=== PATIENT | male | born 1955 | race Caucasian/White ===

== ENCOUNTER 2019-05-26 17:37 | Emergency (ER) | payer OTHER ==
--- NOTE | 2019-05-26 18:18 | EKG REPORT ---
SEVERITY:- NORMAL ECG - SINUS RHYTHM : Confirmed by: Mark Mcginnis MD 26-May-2019 18:17:34
[2019-05-26 18:41] LABS: ALBUMIN 3.5 g/dL (3.5-5.0); ALKALINE PHOSPHATASE 57 U/L (38-126); ANION GAP 8 (5-19); ASPARTATE AMINO TRANSFERASE 21 U/L (17-59); BILIRUBIN,DIRECT 0.3 mg/dL (0.0-0.4); BILIRUBIN,TOTAL 0.5 mg/dL (0.2-1.3); BLOOD UREA NITROGEN 19 mg/dL (7-20); CALCIUM 8.6 mg/dL (8.4-10.2); CARBON DIOXIDE 25 mmol/L (22-30); CHLORIDE 105 mmol/L (98-107); CREATINE KINASE 72 U/L (55-170); GLUCOSE 122 mg/dL (75-110); POTASSIUM 4.5 mmol/L (3.6-5.0); TOTAL PROTEIN 6.2 g/dL (6.3-8.2)
[2019-05-26 18:45] LABS: ABSOLUTE LYMPHOCYTES (AUTO) 1.3 10^3/uL (0.5-4.7); ABSOLUTE MONOCYTES (AUTO) 0.7 10^3/uL (0.1-1.4); ABSOLUTE NEUT (AUTO) 12.9 10^3/uL (1.7-8.2); BASOPHILS % (AUTO) 0.1 % (0-2); HEMATOCRIT 37.7 % (37.9-51.0); HEMOGLOBIN 12.4 g/dL (13.5-17.0); LYMPHOCYTES % (AUTO) 8.7 % (13-45); MEAN CORPUSCULAR HEMOGLOBIN 31.1 pg (27.0-33.4); MEAN CORPUSCULAR VOLUME 94 fl (80-97); MONOCYTES % (AUTO) 4.7 % (3-13); PLATELET COUNT 139 10^3/uL (150-450); RED BLOOD COUNT 4.01 10^6/uL (4.35-5.55); RED CELL DISTRIBUTION WIDTH 14.4 % (11.5-14.0); SEGMENTED NEUTROPHILS % (AUTO) 86.5 % (42-78); TOTAL CELLS COUNTED % (AUTO) 100 %
[2019-05-26 18:53] LABS: CREATINE KINASE MB 1.22 ng/mL (<4.55)
[2019-05-26 18:55] LABS: TROPONIN I < 0.012 ng/mL
[2019-05-26 19:13] LABS: APPEARANCE,URINE CLOUDY; BILIRUBIN,URINE SMALL (NEGATIVE); GLUCOSE, URINE NEGATIVE (NEGATIVE); KETONES,URINE TRACE mg/dL (NEGATIVE); LEUKOCYTE ESTERASE,URINE NEGATIVE (NEGATIVE); NITRITE,URINE NEGATIVE (NEGATIVE); PROTEIN,URINE 100 mg/dL (NEGATIVE); URINE SPECIFIC GRAVITY 1.023
[2019-05-26 19:14] LABS: COLOR,URINE YELLOW
[2019-05-26] MEDS ORDERED: ONDANSETRON HCL INJ/PF 4 MG/2 ML SDV IV ONE (19:56)
[2019-05-26] MEDS ORDERED: HYDROMORPHONE HCL INJ/PF 2 MG/ML AMPULE IV ONE ×2 (19:57→22:09)
--- NOTE | 2019-05-26 20:55 | ER Document Report ---
ED General - General Chief Complaint: Near Syncope Stated Complaint: DIZZINESS Time Seen by Provider: 05/26/19 19:01 Primary Care Provider: CHARLES MCCABE MD [Primary Care Provider] - Follow up as needed Notes: 63-year-old male presents emergency department complaining of 3 near syncopal episodes today starting with one while he was straining to have a bowel movement on the toilet. Patient states that he has a history of chronic constipation and was straining to have a bowel movement on the toilet when he became dizzy and sweaty and off balance and fell off the toilet. States he sustained skin tears to his right arm. Later during the day while he was cleaning he had 2 more near syncopal episodes. Denies any chest pain at the time denies any other injuries from this. Patient admits that today all he has had to drink was 2 cups of coffee and one Dr. Pepper. Otherwise has not had anything to eat or drink and yesterday he did not eat anything but only had limited liquid intake and that included alcohol. Patient's bigger concern is his low back pain that is been going on for the past year. States that it goes from hip to hip does not radiate down his legs or up into his upper back, denies any numbness or tingling and denies any loss of control of his bowels or his bladder. Denies any worsening of the pain since his fall but does state it is now radiating to his abdomen. Patient would like to have this worked up as well. TRAVEL OUTSIDE OF THE [place] IN LAST 30 DAYS: No - Related Data Allergies/Adverse Reactions: No Known Allergies Allergy (Verified 02/23/16 07:38) Past Medical History - General Information source: Patient - Social History Smoking Status: Current Every Day Smoker Frequency of alcohol use: Occasional Drug Abuse: Marijuana Family History: Reviewed & Not Pertinent Patient has suicidal ideation: No Patient has homicidal ideation: No - Past Medical History Cardiac Medical History: Reports: Hx Hypercholesterolemia, Hx Hypertension Denies: Hx Coronary Artery Disease, Hx Heart Attack Pulmonary Medical History: Denies: Hx Asthma, Hx Bronchitis, Hx COPD, Hx Pneumonia Neurological Medical History: Denies: Hx Cerebrovascular Accident, Hx Seizures Endocrine Medical History: Denies: Hx Diabetes Mellitus Type 1, Hx Diabetes Mellitus Type 2 Musculoskeletal Medical History: Denies Hx Arthritis Past Surgical History: Reports: Hx Orthopedic Surgery, Hx Testicular Surgery - vasectomy. Denies: Hx Pacemaker - Immunizations Immunizations up to date: Yes Hx Diphtheria, Pertussis, Tetanus Vaccination: Yes Review of Systems - Review of Systems Constitutional: No symptoms reported EENT: No symptoms reported Cardiovascular: See HPI - Near syncope Respiratory: No symptoms reported Gastrointestinal: See HPI, Abdominal pain, Constipation. denies: Diarrhea, Nausea Genitourinary: No symptoms reported Musculoskeletal: See HPI, Back pain -: Yes All other systems reviewed and negative Physical Exam - Vital signs Vitals: Temp 98.1 F 05/26/19 17:48 Interpretation: Normal - Notes Notes: GENERAL: Alert, interacts well. No acute distress. HEAD: Normocephalic, atraumatic EYES: Pupils equal, round and reactive to light, extraocular movements intact. ENT: Oral mucosa moist, tongue midline. NECK: Full range of motion, supple, trachea midline. LUNGS: Clear to auscultation bilaterally, no wheezes, rales or rhonchi, no respiratory distress. HEART: Regular rate and rhythm, no murmurs, gallops, rubs. ABDOMEN: Soft, right-sided tenderness to palpation right upper and lower quadrant, obese but nondistended, bowel sounds present in all 4 quadrants. EXTREMITIES: Moves all 4 extremities spontaneously, no edema, radial and dorsalis pedis pulses 2/4 bilaterally. No cyanosis. NEUROLOGICAL: Alert and oriented x3, normal speech, no facial droop, biceps and patellar DTRs 2+ bilaterally. 5 out of 5 great toe raising strength bilaterally, sensation intact, no saddle anesthesia. BACK: No midline bony tenderness to palpation on the back, no step-offs or d eformity, no paraspinal muscle spasm. Patient has a small amount of tenderness to palpation across the buttocks bilaterally across the sciatic nerve distribution. PSYCH: Normal mood, normal affect. SKIN: Warm, Dry, normal turgor, 2 superficial skin tears noted to the right forearm proximally. Course - Re-evaluation Re-evalutation: 05/26/19 21:15 CBC shows leukocytosis of 15, anemia with hemoglobin 12, platelets low at 139, creatinine is bumped at 1.49, troponin negative. Urinalysis shows trace ketones and small bilirubin. Patient is being hydrated. Chest x-ray and CT scan are being performed given the abdominal pain and near syncope. EKG is nonischemic. For the low back pain that is been going on for the past year I am having them perform lumbar reconstructions on the CAT scan. I do not see any signs of cauda equina syndrome. There are no red flag symptoms. 05/26/19 21:31 I just examined the images on the CAT scan of this patient and he appears to have a greater than 9 cm abdominal aortic aneurysm with true and false lumen as well as right sided rupture. I have called and asked the radiologist to look at this as soon as possible. This will be communicated to the radiologist by the doctor of radiology. We are performing coags, getting a second large-bore IV and typing and crossing the patient. 05/26/19 22:07 Radiology confirms ruptured AAA with rightward leaking. States that there is plaquing and ulceration but he does not see a dissection. I have also push the films to [facility] and asked for vascular surgeon to take a look. I am calling them back at this time to see if they will accept the patient. 05/26/19 22:12 Dr. Chavez will call me back after the films have been examined. They just got pushed over. Family is aware of my plan to transfer to [facility] and of the diagnosis. They are in agreement with the plan. Patient's blood pressure is currently well controlled. 2 units of PRBCs have been ordered in case the patient becomes hypotensive. There are signs of intravascular volume depletion on the CT scan. We will likely end up giving 1 unit of PRBCs as soon is ready. I have not ordered untyped uncrossed trauma blood. 05/26/19 22:[address] Chavez who has reviewed the films, he agrees to accept the patient to his service. He recommends against giving PRBCs unless the patient becomes hypotensive. They are checking to see if the patient can fly. 05/26/19 22:49 Helicopter is available, they will be here in 15 to 20 minutes. 05/26/19 23:12 Helicopter crew is at bedside, patient continues to be stable, normal blood pressure. Patient is stable for transport. - Vital Signs Vital signs: Temp Pulse Resp BP Pulse Ox 98.1 F 15 115/74 92 05/26/19 17:48 05/26/19 22:31 05/26/19 22:31 05/26/19 22:31 - Laboratory Result Diagrams: 05/26/19 18:14 05/26/19 18:14 Laboratory results interpreted by me: 05/26/19 05/26/19 05/26/19 18:14 18:14 18:50 WBC 15.0 H RBC 4.01 L Hgb 12.4 L Hct 37.7 L RDW 14.4 H Plt Count 139 L Lymph % (Auto) 8.7 L Absolute Neuts (auto) 12.9 H Seg Neutrophils % 86.5 H Creatinine 1.49 H Est GFR ( Amer) 58 L Est GFR (MDRD) Non-Af 48 L Glucose 122 H Total Protein 6.2 L Urine Protein 100 H Urine Ketones TRACE H Urine Bilirubin SMALL H Urine Urobilinogen 2.0 H Crossmatch 05/26/19 21:36 WBC RBC Hgb Hct RDW Plt Count Lymph % (Auto) Absolute Neuts (auto) Seg Neutrophils % Creatinine Est GFR ( Amer) Est GFR (MDRD) Non-Af Glucose Total Protein Urine Protein Urine Ketones Urine Bilirubin Urine Urobilinogen Crossmatch See Detail Critical Care Note - Critical Care Note Total time excluding time spent on procedures (mins): 55 Discharge - Discharge Clinical Impression: Ruptured abdominal aortic aneurysm, Chronic back pain greater than 3 months duration Condition: Critical Disposition: [facility] Referrals: CHARLES MCCABE MD [Primary Care Provider] - Follow up as needed
[2019-05-26] MEDS ORDERED: NORMAL SALINE 1000 ML 1,000 ML IV ONE (21:15)
--- NOTE | 2019-05-26 21:34 | RADIOLOGY REPORT (SQ) ---
EXAM DESCRIPTION: [facility]: XR CHEST 2 VIEWS Views: 2 CLINICAL HISTORY: 63 years Male, near syncope COMPARISON: None. FINDINGS: The lungs are clear. No pneumothorax or significant pleural effusion. No mediastinal shift. Heart size is difficult to assess on this apical lordotic view. Bony structures are unremarkable for age. IMPRESSION: 1. No acute cardiothoracic abnormality.
[2019-05-26 21:49] LABS: INTERNATIONAL RATION (INR) 1.14; PROTHROMBIN TIME 14.7 SEC (11.4-15.4)
[2019-05-26 21:50] LABS: PARTIAL THROMBOPLASTIN TIME 29.2 SEC (23.5-35.8)
--- NOTE | 2019-05-26 21:50 | RADIOLOGY REPORT (SQ) ---
EXAM DESCRIPTION: CT ABDOMEN PELVIS WITH IV CONTRAST COMPLETED DATE/TME: 05/26/2019 19:56 CLINICAL HISTORY: 63 years, Male, Near syncope x3, vomiting, abdominal pain LUMBAR PAIN COMPARISON: None. TECHNIQUE: Contrast enhanced CT of the abdomen/pelvis was performed. Coronal and sagittal reformations were created. Images stored on PACS. All CT scanners at this facility use dose modulation, iterative reconstruction, and/or weight based dosing when appropriate to reduce radiation dose to as low as reasonably achievable (ALARA). [facility]: Dose Right [facility]: CareDose [facility]: Dose Right [facility]: Teradose 4D [facility]: [employer] LIMITATIONS: None. FINDINGS: Limited evaluation of the lower chest reveals bibasilar dependent atelectasis. Calcifications are evident about the coronary vessels. There is a small hiatal hernia. A fluid density lesion is noted about the dome of the left hepatic lobe, indicative of a simple cyst. An additional fluid density lesion is noted about the inferior aspect of the right hepatic lobe, also corresponding to a simple hepatic cyst. The liver otherwise enhances normally. Spleen, pancreas, and both adrenal glands appear normal. Gallbladder appears normal. A few low-density lesions are noted about the left kidney, too small to actually characterize. Both kidneys otherwise enhance symmetrically. There is no hydronephrosis or hydroureter. The urinary bladder is collapsed, thus its evaluation is limited. Bilateral fat-containing inguinal hernias are noted. A few scattered colonic diverticula are noted. No pericolonic inflammation. No evidence of bowel obstruction. Appendix is not visualized. Visualized is a large infrarenal abdominal aortic aneurysm measuring up to 8.8 x 8.3 cm in size on image 56 of series 3. There is an associated large retroperitoneal hematoma located about the right hemiabdomen draping inferiorly along the right psoas musculature and into the right pelvic sidewall/right lower quadrant. Additionally, the aneurysm sac appears partially thrombosed with a focus of ulcerated plaque located about the rightward aspect of the abdominal aneurysm sac on image 61 of series 3. The retroperitoneal hematoma extrudes mass effect upon the right kidney as well as the IVC. Bone windows show no destructive osseous lesions. There is remote superior endplate deformity involving the L1 vertebral body. IMPRESSION: Findings are consistent with a ruptured abdominal aortic aneurysm, as above described. Small hiatal hernia. Other incidental findings are as above. TECHNICAL DOCUMENTATION: Quality ID # 436: Final reports with documentation of one or more dose reduction techniques (e.g., Automated exposure control, adjustment of the mA and/or kV according to patient size, use of iterative reconstruction technique) copyright 2011 [employer]- All Rights Reserved
[2019-05-26] MEDS ORDERED: NORMAL SALINE 250 ML IV PRN (21:52)
[2019-05-26 22:46] VITALS: BP 115/74
== END 2019-05-26 23:12 | disposition short-term general hospital (02) ==
LOC: ER 17:37
DX: I71.3 Abdominal aortic aneurysm, ruptured (principal); M54.5 Low back pain; G89.29 Other chronic pain; S51.811A Laceration without foreign body of right forearm, initial encounter; W18.11XA Fall from or off toilet without subsequent striking against object, initial encounter; Y93.89 Activity, other specified; K59.00 Constipation, unspecified; D64.9 Anemia, unspecified; R55 Syncope and collapse; F17.200 Nicotine dependence, unspecified, uncomplicated; I10 Essential (primary) hypertension; F12.10 Cannabis abuse, uncomplicated; D72.829 Elevated white blood cell count, unspecified; R10.9 Unspecified abdominal pain; R10.811 Right upper quadrant abdominal tenderness; R10.813 Right lower quadrant abdominal tenderness
CPT/HCPCS: 93005; 96376; 99291; 96361; 96374; 96375; 86900; 86901; 36415; 82553; 86850; 82550; 85025; 85610; 85730; 80053; 81001; 84484; 71046; 74177; 93010; J1170; J2405; J7030

== ENCOUNTER 2019-06-15 16:22 | Inpatient (IN) | payer OTHER ==
[2019-06-15 17:08] LABS: ABSOLUTE EOSINOPHILS # (AUTO) 0.1 10^3/uL (0.0-0.6); ABSOLUTE LYMPHOCYTES (AUTO) 1.3 10^3/uL (0.5-4.7); ABSOLUTE MONOCYTES (AUTO) 0.4 10^3/uL (0.1-1.4); ABSOLUTE NEUT (AUTO) 4.4 10^3/uL (1.7-8.2); BASOPHILS % (AUTO) 0.3 % (0-2); EOSINOPHILS % (AUTO) 1.6 % (0-6); HEMATOCRIT 27.9 % (37.9-51.0); HEMOGLOBIN 9.2 g/dL (13.5-17.0); MEAN CORPUSCULAR HEMOGLOBIN 29.8 pg (27.0-33.4); MEAN CORPUSCULAR HGB CONC 32.8 g/dL (32.0-36.0); MEAN CORPUSCULAR VOLUME 91 fl (80-97); MONOCYTES % (AUTO) 6.1 % (3-13); PLATELET COUNT 309 10^3/uL (150-450); RED BLOOD COUNT 3.08 10^6/uL (4.35-5.55); RED CELL DISTRIBUTION WIDTH 15.5 % (11.5-14.0); TOTAL CELLS COUNTED % (AUTO) 100 %; WHITE BLOOD COUNT 6.2 10^3/uL (4.0-10.5)
[2019-06-15 17:14] LABS: ALBUMIN 3.1 g/dL (3.5-5.0); ALKALINE PHOSPHATASE 127 U/L (38-126); ANION GAP 8 (5-19); ASPARTATE AMINO TRANSFERASE 56 U/L (17-59); BILIRUBIN,DIRECT 0.7 mg/dL (0.0-0.4); BILIRUBIN,TOTAL 1.6 mg/dL (0.2-1.3); BLOOD UREA NITROGEN 12 mg/dL (7-20); CALCIUM 8.5 mg/dL (8.4-10.2); CARBON DIOXIDE 26 mmol/L (22-30); CHLORIDE 102 mmol/L (98-107); CREATINE KINASE 36 U/L (55-170); GLUCOSE 98 mg/dL (75-110); TOTAL PROTEIN 7.2 g/dL (6.3-8.2)
[2019-06-15 17:16] LABS: INTERNATIONAL RATION (INR) 1.23; PROTHROMBIN TIME 15.6 SEC (11.4-15.4)
[2019-06-15 17:26] LABS: CREATINE KINASE MB 0.49 ng/mL (<4.55)
[2019-06-15 17:27] LABS: TROPONIN I < 0.012 ng/mL
--- NOTE | 2019-06-15 19:45 | RADIOLOGY REPORT (SQ) ---
EXAM DESCRIPTION: VENOUS UNILATERAL LOWER COMPLETED DATE/TIME: 06/15/2019 7:36 pm REASON FOR STUDY: right leg swelling COMPARISON: None. TECHNIQUE: Dynamic and static garcia scale and color images acquired of the right leg venous system. S elected spectral images acquired with additional compression and augmentation maneuvers. The contrala teral common femoral vein and saphenofemoral junction were also imaged. Images stored on PACS. LIMITATIONS: None. FINDINGS: COMMON FEMORAL: Noncompressible. FEMORAL: Noncompressible. POPLITEAL: Noncompressible. CALF VESSELS: Normal compression, augmentation. No visualized echogenic material on garcia scale. No de fects on color images. GSV and SSV: Normal compression, augmentation. No visualized echogenic material on garcia scale. No def ects on color images. ANY DEEP VENOUS INSUFFICIENCY: Not evaluated. ANY EVIDENCE OF POPLITEAL CYST: No. OTHER: No other significant finding. CONTRALATERAL COMMON FEMORAL VEIN AND SAPHENOFEMORAL JUNCTION: Normal phasicity, compression and augmentation. No visualized echogenic material on garcia scale. No de fects on color images. IMPRESSION: Noncompressible right femoral and popliteal veins consistent with acute DVT. COMMENT: Preliminary results communicated to the emergency room physician by the technologist. TECHNICAL DOCUMENTATION: JOB ID: [id number] [place]-72 2010 [employer]- All Rights Reserved Reading location - IP/workstation name: [email or web address]
--- NOTE | 2019-06-15 20:05 | RADIOLOGY REPORT (SQ) ---
EXAM DESCRIPTION: CTA CHEST COMPLETED DATE/TIME: 06/15/2019 7:50 pm REASON FOR STUDY: SOB, post-op, r/o PE COMPARISON: 05/26/2019 TECHNIQUE: CT scan of the chest performed using helical scanning technique with dynamic intravenous contrast injection. Images reviewed with lung, soft tissue and bone windows. Reconstructed coronal and sagittal MPR images reviewed. Additional 3 dimensional post-processing performed to develop Maximal Intensity Projection images (IL P). All images stored on PACS. All CT scanners at this facility use dose modulation, iterative reconstruction, and/or weight based d osing when appropriate to reduce radiation dose to as low as reasonably achievable (ALARA). [facility]: Dose Right [facility]: CareDose [facility]: Dose Right [facility]: Teradose 4D [facility]: [employer] CONTRAST TYPE AND DOSE: contrast/concentration: Isovue 350.00 mg/ml; Total Contrast Delivered: 84.0 ml; Total Saline Delivered: 60.0 ml Contrast bolus optimized for the pulmonary arteries. Not diagnostic for the aorta. RENAL FUNCTION: GFR > 60. RADIATION DOSE: CT Rad equipment meets quality standard of care and radiation dose reduction techniq ues were employed. CTDIvol: 15.5 - 31.0 mGy. DLP: 622 mGy-cm. . LIMITATIONS: None. FINDINGS: LUNGS AND PLEURA: 2 cm irregular cystic lesion in the superior segment of the left lower l obe. Scattered gdvvoz-tbnqt-ultigowrjzgu opacities bilaterally. Subpleural scarring noted in the li ngula. No pneumothorax. Moderate emphysema. AORTA AND GREAT VESSELS: No aneurysm. Contrast bolus not optimized for the aorta. HEART: No pericardial effusion. No significant coronary artery calcifications. PULMONARY ARTERIES: Multiple emboli visualized in the right upper lobe and left lower lobe pulmonary arteries -segmental branches. HILAR AND MEDIASTINAL STRUCTURES: No identified masses or abnormal nodes. HARDWARE: None in the chest. UPPER ABDOMEN: Similar findings compared with the prior study which showed ruptured abdominal aortic aneurysm. THYROID AND OTHER SOFT TISSUES: No masses. No adenopathy. BONES: No acute or significant finding. 3D MIPS: Confirm above findings. OTHER: No other significant finding. IMPRESSION: Multiple emboli visualized in the right upper lobe and left lower lobe pulmonary arterie s -segmental branches. 2 cm irregular cystic lesion in the superior segment of the left lower lobe. Scattered ground-glass- interstitial opacities bilaterally. Similar findings compared with the prior study which showed ruptured abdominal aortic aneurysm. COMMENT: The findings were sent to the Radiology Results Communication Center at 19:59 on 06/15/2019 to be communicated to a licensed caregiver. Quality ID # 436: Final reports with documentation of one or more dose reduction techniques (e.g., Au tomated exposure control, adjustment of the mA and/or kV according to patient size, use of iterative reconstruction technique) TECHNICAL DOCUMENTATION: JOB ID: [id number] [place]-72 2010 [employer]- All Rights Reserved Reading location - IP/workstation name: [email or web address]
[2019-06-15] MEDS ORDERED: ENOXAPARIN SODIUM INJ 100 MG/1 ML DISP.SYRIN SUBCUT ONE (21:32)
[2019-06-15] MEDS ORDERED: RIVAROXABAN 15 MG TABLET PO ONE (21:32)
--- NOTE | 2019-06-15 22:08 | EKG REPORT ---
SEVERITY:- BORDERLINE ECG - SINUS TACHYCARDIA NONSPECIFIC INFERIOR ST-T CHANGES : Confirmed by: Mark Mcginnis MD 15-Jun-2019 22:07:31
[2019-06-15] MEDS ORDERED: RIVAROXABAN 15 MG TABLET ONE (22:11)
--- NOTE | 2019-06-15 22:11 | ER Document Report ---
ED General - General Chief Complaint: Leg Swelling Stated Complaint: RIGHT LEG PAIN Time Seen by Provider: 06/15/19 17:07 Primary Care Provider: CHARLES MCCABE MD [Primary Care Provider] - Follow up as needed Notes: 63-year-old male who is 3 weeks status post repair of a AAA presents emergency department complaining of right calf pain and swelling for the past week and it has been getting progressively worse. Patient used to be on DVT prophylaxis but was recently switched to aspirin. Also complains of right-sided chest pain and shortness of breath on ambulation. TRAVEL OUTSIDE OF THE [place] IN LAST 30 DAYS: No - Related Data Allergies/Adverse Reactions: No Known Allergies Allergy (Verified 02/23/16 07:38) Past Medical History - General Information source: Patient - Social History Smoking Status: Former Smoker Chew tobacco use (# tins/day): No Frequency of alcohol use: None Drug Abuse: None Family History: Reviewed & Not Pertinent Patient has suicidal ideation: No Patient has homicidal ideation: No - Past Medical History Cardiac Medical History: Reports: Hx Hypercholesterolemia, Hx Hypertension Denies: Hx Coronary Artery Disease, Hx Heart Attack Pulmonary Medical History: Denies: Hx Asthma, Hx Bronchitis, Hx COPD, Hx Pneumonia Neurological Medical History: Denies: Hx Cerebrovascular Accident, Hx Seizures Endocrine Medical History: Denies: Hx Diabetes Mellitus Type 1, Hx Diabetes Mellitus Type 2 Musculoskeletal Medical History: Denies Hx Arthritis Past Surgical History: Reports: Hx Orthopedic Surgery, Hx Testicular Surgery - vasectomy. Denies: Hx Pacemaker - Immunizations Immunizations up to date: Yes Hx Diphtheria, Pertussis, Tetanus Vaccination: Yes Review of Systems - Review of Systems Constitutional: See HPI, Weakness EENT: No symptoms reported Cardiovascular: See HPI Respiratory: See HPI Musculoskeletal: See HPI, Leg swelling, Ankle swelling -: Yes All other systems reviewed and negative Physical Exam - Vital signs Vitals: Pulse Ox 98 06/15/19 16:22 Interpretation: Normal - Notes Notes: GENERAL: Alert, interacts well. No acute distress, but appears somewhat garcia. HEAD: Normocephalic, atraumatic EYES: Pupils equal, round and reactive to light, extraocular movements intact. ENT: Oral mucosa moist, tongue midline. NECK: Full range of motion, supple, trachea midline. LUNGS: Clear to auscultation bilaterally, no wheezes, rales or rhonchi, no respiratory distress. HEART: Regular rate and rhythm, no murmurs, gallops, rubs. ABDOMEN: Soft, nontender except directly over top of the surgical site which is consistent with being immediately postoperative, nondistended, bowel sounds present in all 4 quadrants. Left groin does have a small area of fluctuance just lateral to the incision, it is nontender and it is not erythematous. No evidence of hernia. EXTREMITIES: Moves all 4 extremities spontaneously, right leg has 2+ pitting edema, is warm to the touch but not hot, 2+ dorsalis pedis pulses bilaterally, no cyanosis, no color change. Decreased hair growth bilateral lower extremities. NEUROLOGICAL: Alert and oriented x3, normal speech. PSYCH: Normal mood, normal affect. SKIN: Warm, Dry, incisions that are well approximated with teresa across the abdomen and groin. Course - Re-evaluation Re-evalutation: 06/15/19 23:38 CBC shows anemia with a hemoglobin 9.2, INR slightly prolonged at 1.23, CMP grossly unremarkable, cardiac enzymes negative, venous Doppler shows large DVT in the right lower extremity, patient is not a candidate for thrombolysis as he had AAA surgery 3 weeks ago, CT angiogram of the chest shows multiple bilateral pulmonary emboli in the left lower and right upper lobe as well as scattered groundglass interstitial opacities and 2 cm irregular cystic lesion. Patient was ambulated and became markedly hypoxic and tachycardic. Patient was given Lovenox as an anticoagulant after consulting with Dr. Gordon the vascular surgeon on-call for Dr. Chavez at [facility]. States that having had his AAA repair 3 weeks ago as a contraindication to thrombolysis but not to anticoagulation. Patient was then discussed with Dr. Nicholson who accepts the patient to the intensive care unit. - Vital Signs Vital signs: Temp Pulse Resp BP Pulse Ox 99.8 F 21 H 117/67 92 06/15/19 21:01 06/15/19 22:01 06/15/19 22:01 06/15/19 22:01 - Laboratory Result Diagrams: 06/15/19 16:10 06/15/19 16:10 Laboratory results interpreted by me: 06/15/19 06/15/19 06/15/19 16:10 16:10 16:10 RBC 3.08 L Hgb 9.2 L Hct 27.9 L RDW 15.5 H PT 15.6 H Sodium 135.9 L Total Bilirubin 1.6 H Direct Bilirubin 0.7 H Alkaline Phosphatase 127 H Creatine Kinase 36 L Albumin 3.1 L - EKG Interpretation by Me Additional EKG results interpreted by me: 06/15/19 23:38 EKG shows sinus tachycardia at a rate of 101, normal axis, normal intervals, no ST segment elevations or depressions, slight T wave inversions in lead III and flattening in aVF per my interpretation. Discharge - Discharge Clinical Impression: Multiple pulmonary emboli Right leg DVT Qualifiers: Affected thrombotic vein of extremity: femoral Chronicity: acute Qualified Code(s): I82.411 - Acute embolism and thrombosis of right femoral vein Condition: Serious Disposition: ADMITTED INPATIENT Admitting Provider: Lyn (Hospitalist) Unit Admitted: ICU
[2019-06-16] MEDS ORDERED: LEVALBUTEROL HCL NEB 0.63 MG/3 ML AMPUL NEB PRN (01:19)
[2019-06-16] MEDS ORDERED: TEMAZEPAM 15 MG CAPSULE PO PRN (01:19)
[2019-06-16] MEDS ORDERED: ONDANSETRON HCL INJ/PF 4 MG/2 ML SDV IV PRN (01:19)
[2019-06-16] MEDS ORDERED: MAGNESIUM HYDROXIDE SUSP 30 ML UDCUP PO PRN (01:19)
[2019-06-16] MEDS ORDERED: MAG HYDROX/AL HYDROX/SIMETH SUSP 30 ML UDCUP PO PRN (01:19)
[2019-06-16] MEDS ORDERED: HEPARIN SOD (PORCINE) 1,000 UNIT/ML 10 ML VIAL IV ONE (01:24)
[2019-06-16] MEDS ORDERED: ACETAMINOPHEN 325 MG TABLET PO PRN (01:25)
[2019-06-16] MEDS ORDERED: MORPHINE SULFATE 10 MG/ML INJ IV PRN (01:25)
[2019-06-16] MEDS: HEPARIN SODIUM,PORCINE/D5W 25,000 UNIT/250 ML RTUINJ IV PRN ×2 (02:18→18:49)
[2019-06-16 03:03] LABS: ABSOLUTE EOSINOPHILS # (AUTO) 0.2 10^3/uL (0.0-0.6); ABSOLUTE LYMPHOCYTES (AUTO) 1.3 10^3/uL (0.5-4.7); ABSOLUTE MONOCYTES (AUTO) 0.4 10^3/uL (0.1-1.4); ABSOLUTE NEUT (AUTO) 4.7 10^3/uL (1.7-8.2); BASOPHILS % (AUTO) 0.4 % (0-2); EOSINOPHILS % (AUTO) 2.3 % (0-6); HEMATOCRIT 26.3 % (37.9-51.0); HEMOGLOBIN 8.7 g/dL (13.5-17.0); LYMPHOCYTES % (AUTO) 19.4 % (13-45); MEAN CORPUSCULAR HEMOGLOBIN 29.4 pg (27.0-33.4); MEAN CORPUSCULAR HGB CONC 32.9 g/dL (32.0-36.0); MEAN CORPUSCULAR VOLUME 89 fl (80-97); MONOCYTES % (AUTO) 6.2 % (3-13); PLATELET COUNT 286 10^3/uL (150-450); RED BLOOD COUNT 2.94 10^6/uL (4.35-5.55); RED CELL DISTRIBUTION WIDTH 15.9 % (11.5-14.0); SEGMENTED NEUTROPHILS % (AUTO) 71.7 % (42-78); TOTAL CELLS COUNTED % (AUTO) 100 %; WHITE BLOOD COUNT 6.6 10^3/uL (4.0-10.5)
[2019-06-16] MEDS ORDERED: HEPARIN SOD (PORCINE) 1,000 UNIT/ML 10 ML VIAL IV PRN (04:25)
[2019-06-16 04:36] LABS: INTERNATIONAL RATION (INR) 1.36; PROTHROMBIN TIME 16.9 SEC (11.4-15.4)
--- NOTE | 2019-06-16 04:48 | PDOC H&P ---
History of Present Illness Admission Date/PCP: 06/15/19 23:41 CHARLES MCCABE MD Patient complains of: Right calf pain and swelling History of Present Illness: RUTH RUGGIERO SR is a 63 year old male who presented to the emergency room with a one-week history of pain and swelling in his right calf. Patient admits that his right calf pain and swelling began 1 week ago and has been progressi vely worsening to the point where it is very uncomfortable at this time. His leg swelling has been accompanied by mild right-sided chest pain and dyspnea on exertion. He admits a history of a recent abdominal aortic aneurysm which was repaired 3 weeks ago in [place]. He was discharged on aspirin as his postoperative DVT prophylaxis. He denies other associated or accompanying signs and symptoms. He denies prior similar episodes and he has not identified any additional aggravating or ameliorating factors for his right calf pain. In the emergency room he was found to have multiple small bilateral pulmonary emboli as well as a right lower extremity DVT. He was subsequently been in the hospital for further evaluation and treatment in the ICU. Past Medical History Cardiac Medical History: Reports: Hyperlipidema, Hypertension, Peripheral Vascular Disease Denies: Coronary Artery Disease, Myocardial Infarction Pulmonary Medical History: Reports: Chronic Obstructive Pulmonary Disease (COPD), Pneumonia - Complicating his recent abdominal aortic aneurysm, Other - Pneumothorax complicating his recent abdominal aortic aneurysm Denies: Asthma, Bronchitis EENT Medical History: Denies: Cataracts, Ears - Hearing aids Neurological Medical History: Reports: Ischemic CVA Denies: Hemorrhagic CVA, Seizures Endocrine Medical History: Denies: Diabetes Mellitus Type 1, Diabetes Mellitus Type 2, Hyperthyroidism, Hypothyroidism, Obesity Renal/ Medical History: Denies: Chronic Kidney Disease, Nephrolithiasis Malignancy Medical History: Reports: None GI Medical History: Denies: Cirrhosis, Crohn's Disease, Hepatitis, Ulcerative Colitis Musculoskeltal Medical History: Reports: Other - Chronic back pain Denies: Arthritis, Gout Skin Medical History: Denies: Eczema, Psoriasis Psychiatric Medical History: Denies: Alcohol Dependency, Substance Abuse, Tobacco Dependency Traumatic Medical History: Reports: None Hematology: Denies: Anemia, Bleeding Tendencies Infectious Medical History: Reports: None Past Surgical History Past Surgical History: Reports: Orthopedic Surgery, Vascular Surgery - Abdominal aortic aneurysm repair Social History Information Source: Patient Lives with: Spouse/Significant other Smoking Status: Former Smoker - Quit smoking 3 weeks ago Frequency of Alcohol Use: Occasional Hx Recreational Drug Use: No Drugs: None Hx Prescription Drug Abuse: No Family History Parental Family History Reviewed: Yes Children Family History Reviewed: No Sibling(s) Family History Reviewed.: Yes Medication/Allergy Home Medications: Simvastatin [Zocor 20 mg Tablet] 20 mg PO DAILY 10/01/12 Allergies/Adverse Reactions: No Known Allergies Allergy (Verified 02/23/16 07:38) Review of Systems Constitutional: ABSENT: chills, fever(s) Eyes: ABSENT: visual disturbances, other - Eye pain Ears: ABSENT: hearing changes, other - Ear pain Nose, Mouth, and Throat: ABSENT: mouth pain, sore throat Cardiovascular: PRESENT: as per HPI, chest pain, dyspnea on exertion, edema - Pain and swelling in the right lower extremity. ABSENT: orthropnea, palpitations Respiratory: ABSENT: cough, dyspnea, hemoptysis Gastrointestinal: ABSENT: abdominal pain, constipation, diarrhea, nausea, vomiting Genitourinary: ABSENT: dysuria, hematuria Musculoskeletal: PRESENT: as per HPI, back pain - Chronic, other - Pain and swelling in the right lower extremity. ABSENT: joint swelling, muscle weakness Integumentary: ABSENT: pruritus, rash Neurological: ABSENT: confusion, convulsions, focal weakness, memory loss, syncope Psychiatric: ABSENT: anxiety, depression Endocrine: ABSENT: cold intolerance, heat intolerance Hematologic/Lymphatic: ABSENT: easy bleeding, easy bruising Allergic/Immunologic: ABSENT: seasonal rhinorrhea Physical Exam Vital Signs: Temp Pulse Resp BP Pulse Ox 99.8 F 33 H 125/76 92 06/15/19 21:01 06/15/19 23:01 06/15/19 23:01 06/15/19 22:01 Intake & Output 06/14/19 06/15/19 06/16/19 23:59 23:59 23:59 Weight 98.2 kg General appearance: PRESENT: no acute distress, cooperative Head exam: PRESENT: atraumatic, normocephalic Eye exam: PRESENT: conjunctiva pink. ABSENT: conjunctival injection, scleral icterus Ear exam: PRESENT: normal external ear exam. ABSENT: bleeding, drainage Mouth exam: PRESENT: dry mucosa, neck supple Neck exam: ABSENT: thyromegaly, tracheal deviation Respiratory exam: PRESENT: clear to auscultation zari, symmetrical, unlabored Cardiovascular exam: PRESENT: RRR, tachycardia. ABSENT: clicks, gallop, rubs Pulses: PRESENT: normal radial pulses, normal dorsalis pedis pul Vascular exam: PRESENT: normal capillary refill. ABSENT: pallor GI/Abdominal exam: PRESENT: normal bowel sounds, soft Rectal exam: PRESENT: deferred Extremities exam: PRESENT: +1 edema - Right lower extremity with tenderness to palpation. ABSENT: joint swelling, pedal edema Musculoskeletal exam: ABSENT: deformity, dislocation Neurological exam: PRESENT: alert, oriented to person, oriented to place, oriented to time, oriented to situation, CN II-XII grossly intact. ABSENT: motor sensory deficit Psychiatric exam: PRESENT: appropriate affect, normal mood Skin exam: PRESENT: dry, intact, warm. ABSENT: jaundice, rash, urticaria Results Laboratory Results: 06/15/19 16:10 06/15/19 16:10 06/15/19 06/15/19 16:10 16:10 WBC 6.2 RBC 3.08 L Hgb 9.2 L Hct 27.9 L MCV 91 MCH 29.8 MCHC 32.8 RDW 15.5 H Plt Count 309 Seg Neutrophils % 71.0 Sodium 135.9 L Potassium 4.0 Chloride 102 Carbon Dioxide 26 Anion Gap 8 BUN 12 Creatinine 0.89 Est GFR ( Amer) > 60 Glucose 98 Calcium 8.5 Total Bilirubin 1.6 H AST 56 Alkaline Phosphatase 127 H Total Protein 7.2 Albumin 3.1 L 06/15/19 06/15/19 06/15/19 16:10 16:10 20:50 Creatine Kinase 36 L CK-MB (CK-2) 0.49 Troponin I < 0.012 < 0.012 Impressions: Chest/Abdomen CTA 06/15/19 17:37 IMPRESSION: Multiple emboli visualized in the right upper lobe and left lower lobe pulmonary arteries -segmental branches. 2 cm irregular cystic lesion in the superior segment of the left lower lobe. Scattered [id number] opacities bilaterally. Similar findings compared with the prior study which showed ruptured abdominal aortic aneurysm. Venous Doppler Study 06/15/19 17:37 IMPRESSION: Noncompressible right femoral and popliteal veins consistent with acute DVT. Assessment and Plan - Diagnosis (1) Hyperlipidemia Qualifiers: Hyperlipidemia type: unspecified Qualified Code(s): E78.5 - Hyperlipidemia, unspecified Is this a current diagnosis for this admission?: Yes Plan: Patient be continued on his usual antilipid therapy at this time (2) Peripheral vascular disease Is this a current diagnosis for this admission?: Yes Plan: Patient's aspirin therapy will be interrupted for treatment with IV heparin in the immediate hospital course. (3) Acute respiratory failure with hypoxia Is this a current diagnosis for this admission?: Yes Plan: Patient will be given O2 support utilizing nasal cannula oxygen and the O2 protocol. His O2 sat will be monitored closely throughout his hospital stay. (4) Multiple pulmonary emboli Is this a current diagnosis for this admission?: Yes Plan: Patient be treated with IV heparin per protocol for initial therapy. He will be given morphine sulfate 2 to 4 mg IV every 2 hours on a as needed basis using a sliding scale for pain control. (5) Right leg DVT Qualifiers: Affected thrombotic vein of extremity: femoral Chronicity: acute Qualified Code(s): I82.411 - Acute embolism and thrombosis of right femoral vein Is this a current diagnosis for this admission?: Yes Plan: Patient be treated with intravenous heparin per protocol initially. He will use morphine sulfate 2 to 4 mg IV every 2 to 4 hours as needed pain via a sliding scale. (6) COPD (chronic obstructive pulmonary disease) Qualifiers: COPD type: unspecified COPD Qualified Code(s): J44.9 - Chronic obstructive pulmonary disease, unspecified Is this a current diagnosis for this admission?: Yes Plan: Patient will be continued on his usual COPD therapy if it is available here otherwise a reasonable formulary substitution will be made. - Time Time Spent with patient: 25-34 minutes Medications reviewed and adjusted accordingly: Yes Anticipated discharge: Home - Inpatient Certification Based on my medical assessment, after consideration of the patient's comorbidities, presenting symptoms, or acuity I expect that the services needed warrant INPATIENT care.: Yes I certify that my determination is in accordance with my understanding of Medicare's requirements for reasonable and necessary INPATIENT services [42 CFR 412.3e].: Yes Medical Necessity: Significant Comorbidiites Make Outpatient Treatment Too Risky, Need Close Monitoring Due to Risk of Patient Decompensation, Need For Continuous Telemetry Monitoring, Need for Pain Control, Risk of Complication if Not Cared For in Hospital
[2019-06-16 05:25] LABS: PARTIAL THROMBOPLASTIN TIME > 235.0 SEC (23.5-35.8)
[2019-06-16] MEDS: IPRATROPIUM BROMIDE 0.02% NEB 0.5 MG/2.5 ML AMPUL NEB SCH ×2 (08:42→15:36)
[2019-06-16] MEDS: LEVALBUTEROL HCL NEB 1.25 MG/3 ML AMPUL NEB SCH ×2 (08:42→15:36)
[2019-06-16] MEDS: BUDESONIDE NEB 0.5 MG/2 ML AMPUL NEB SCH ×2 (08:42→19:41)
--- NOTE | 2019-06-16 09:35 | PDOC PROGRESS REPORT ---
Subjective Progress Note for:: 06/16/19 Subjective:: ICU progress note. Pt admitted last night for bilateral PEs and acute right DVT. Remains on heparin drip. States his breathing has improved and his right calf swelling has decreased. Reason For Visit: MULTIPLE BILATERAL PE, RIGHT LEG DVT Physical Exam Vital Signs: Temp Pulse Resp BP Pulse Ox 98.4 F 113 H 19 117/67 99 06/16/19 02:39 06/16/19 02:39 06/16/19 06:00 06/16/19 05:18 06/16/19 06:00 Intake & Output 06/15/19 06/16/19 06/17/19 06:59 06:59 06:59 Intake Total 74 Output Total 800 Balance -726 Weight 96.1 kg General appearance: PRESENT: no acute distress, well-developed, well-nourished Head exam: PRESENT: atraumatic, normocephalic Respiratory exam: PRESENT: clear to auscultation zari, unlabored Cardiovascular exam: PRESENT: RRR, other - no mrg GI/Abdominal exam: PRESENT: soft, other - non-tender, non-distended Extremities exam: PRESENT: other - right calf swelling Neurological exam: PRESENT: alert, awake Psychiatric exam: PRESENT: appropriate affect Results Laboratory Results: 06/16/19 02:54 06/15/19 16:10 06/15/19 06/15/19 06/16/19 16:10 16:10 02:54 WBC 6.2 6.6 RBC 3.08 L 2.94 L Hgb 9.2 L 8.7 L Hct 27.9 L 26.3 L MCV 91 89 MCH 29.8 29.4 MCHC 32.8 32.9 RDW 15.5 H 15.9 H Plt Count 309 286 Seg Neutrophils % 71.0 71.7 Sodium 135.9 L Potassium 4.0 Chloride 102 Carbon Dioxide 26 Anion Gap 8 BUN 12 Creatinine 0.89 Est GFR ( Amer) > 60 Glucose 98 Calcium 8.5 Total Bilirubin 1.6 H AST 56 Alkaline Phosphatase 127 H Total Protein 7.2 Albumin 3.1 L 06/15/19 06/15/19 06/15/19 16:10 16:10 20:50 Creatine Kinase 36 L CK-MB (CK-2) 0.49 Troponin I < 0.012 < 0.012 EKG Comments: EKG: sinus tachycardia, no ST elevation Impressions: Chest/Abdomen CTA 06/15/19 17:37 IMPRESSION: Multiple emboli visualized in the right upper lobe and left lower lobe pulmonary arteries -segmental branches. 2 cm irregular cystic lesion in the superior segment of the left lower lobe. Scattered [id number] opacities bilaterally. Similar findings compared with the prior study which showed ruptured abdominal aortic aneurysm. Venous Doppler Study 06/15/19 17:37 IMPRESSION: Noncompressible right femoral and popliteal veins consistent with acute DVT. Assessment & Plan - Diagnosis (1) Multiple pulmonary emboli Is this a current diagnosis for this admission?: Yes (2) Right leg DVT Qualifiers: Affected thrombotic vein of extremity: femoral Chronicity: acute Qualified Code(s): I82.411 - Acute embolism and thrombosis of right femoral vein Is this a current diagnosis for this admission?: Yes (3) COPD (chronic obstructive pulmonary disease) Qualifiers: COPD type: unspecified COPD Qualified Code(s): J44.9 - Chronic obstructive pulmonary disease, unspecified Is this a current diagnosis for this admission?: Yes (4) S/P AAA repair Is this a current diagnosis for this admission?: Yes - Plan Summary Plan Summary: Assessment: 63 yo man s/p AAA repair 3 weeks ago, bilateral PE, acute right DVT, h/o COPD. Plan: 1. Respiratory: stable on room air. 2. Pulmonary: bilateral PE. Continue heparin drip. COPD, stable 3. CV: heart rate and BP acceptable. Will order echo to eval for RV strain due to PE 4. Heme: bilateral PE, acute right DVT. Continue heparin drip. Transition to oral therapy tmw 5. Vascular: s/p AAA repair around 3 weeks ago at [facility]. No signs of bleeding on anticoagulation 6. Supportive care 7. Disposition: stable for transfer out of the ICU.
[2019-06-16] MEDS ORDERED: DOCUSATE SODIUM 100 MG CAPSULE PO SCH (10:00)
[2019-06-16] MEDS ORDERED: FAMOTIDINE 20 MG TABLET PO SCH (10:00)
[2019-06-16] MEDS: NICOTINE 21 MG/24 HR PATCH.TD24 TD PRN (13:27)
[2019-06-16 19:10] LABS: APPEARANCE,URINE CLEAR; BILIRUBIN,URINE NEGATIVE (NEGATIVE); COLOR,URINE YELLOW; GLUCOSE, URINE NEGATIVE (NEGATIVE); KETONES,URINE NEGATIVE (NEGATIVE); LEUKOCYTE ESTERASE,URINE NEGATIVE (NEGATIVE); NITRITE,URINE NEGATIVE (NEGATIVE); PROTEIN,URINE NEGATIVE (NEGATIVE); URINE SPECIFIC GRAVITY 1.006
[2019-06-16] MEDS ORDERED: ATORVASTATIN CALCIUM 20 MG TABLET PO SCH ×2 (22:00)
[2019-06-17] MEDS: LEVALBUTEROL HCL NEB 1.25 MG/3 ML AMPUL NEB SCH ×3 (00:40→16:02)
[2019-06-17] MEDS: IPRATROPIUM BROMIDE 0.02% NEB 0.5 MG/2.5 ML AMPUL NEB SCH ×3 (00:40→16:02)
[2019-06-17 04:10] LABS: HEMATOCRIT 25.4 % (37.9-51.0); HEMOGLOBIN 8.4 g/dL (13.5-17.0); MEAN CORPUSCULAR HEMOGLOBIN 29.5 pg (27.0-33.4); MEAN CORPUSCULAR HGB CONC 33.1 g/dL (32.0-36.0); MEAN CORPUSCULAR VOLUME 89 fl (80-97); PLATELET COUNT 257 10^3/uL (150-450); RED BLOOD COUNT 2.85 10^6/uL (4.35-5.55); RED CELL DISTRIBUTION WIDTH 15.8 % (11.5-14.0)
[2019-06-17 04:34] LABS: ANION GAP 7 (5-19); BLOOD UREA NITROGEN 9 mg/dL (7-20); CALCIUM 7.9 mg/dL (8.4-10.2); CARBON DIOXIDE 25 mmol/L (22-30); CHLORIDE 105 mmol/L (98-107); CHOLESTEROL 102.93 mg/dL (0-200); GLUCOSE 102 mg/dL (75-110); POTASSIUM 3.6 mmol/L (3.6-5.0); TRIGLYCERIDES 65 mg/dL (<150)
[2019-06-17 04:45] LABS: DIRECT LDL 76 mg/dL (<100)
[2019-06-17 05:47] LABS: APPEARANCE,URINE CLEAR; BILIRUBIN,URINE NEGATIVE (NEGATIVE); COLOR,URINE YELLOW; GLUCOSE, URINE NEGATIVE (NEGATIVE); KETONES,URINE NEGATIVE (NEGATIVE); LEUKOCYTE ESTERASE,URINE NEGATIVE (NEGATIVE); NITRITE,URINE NEGATIVE (NEGATIVE); PROTEIN,URINE NEGATIVE (NEGATIVE); URINE SPECIFIC GRAVITY 1.008
[2019-06-17] MEDS: BUDESONIDE NEB 0.5 MG/2 ML AMPUL NEB SCH (07:48)
--- NOTE | 2019-06-17 10:10 | PDOC PROGRESS REPORT ---
Subjective Progress Note for:: 06/17/19 Subjective:: ICU progress Note: Pt remains in the ICU, awaiting a medical bed. He remains on a heparin drip. States the swelling in his right calf is decreasing. Has no shortness of breath. Reason For Visit: MULTIPLE BILATERAL PE, RIGHT LEG DVT Physical Exam Vital Signs: Temp Pulse Resp BP Pulse Ox 98.4 F 93 16 130/76 H 100 06/17/19 08:00 06/17/19 08:28 06/17/19 08:00 06/17/19 08:00 06/17/19 08:00 Intake & Output 06/16/19 06/17/19 06/18/19 06:59 06:59 06:59 Intake Total 74 936 Output Total 800 2970 Balance - Weight 96.1 kg 96.3 kg General appearance: PRESENT: no acute distress, well-developed, well-nourished Head exam: PRESENT: atraumatic, normocephalic Respiratory exam: PRESENT: clear to auscultation zari, symmetrical Cardiovascular exam: PRESENT: RRR, other - no mrg GI/Abdominal exam: PRESENT: soft, other - non-tender, non-distended. No rebound, no guarding. Extremities exam: PRESENT: other - right calf swollen Neurological exam: PRESENT: alert, awake Results Laboratory Results: 06/17/19 04:00 06/17/19 04:00 06/16/19 06/17/19 06/17/19 18:50 04:00 04:00 WBC 5.0 RBC 2.85 L Hgb 8.4 L Hct 25.4 L MCV 89 MCH 29.5 MCHC 33.1 RDW 15.8 H Plt Count 257 Sodium 136.6 L Potassium 3.6 Chloride 105 Carbon Dioxide 25 Anion Gap 7 BUN 9 Creatinine 0.74 Est GFR ( Amer) > 60 Glucose 102 Calcium 7.9 L Triglycerides 65 Cholesterol 102.93 LDL Cholesterol Direct 76 VLDL Cholesterol 13.0 HDL Cholesterol 21 L Urine Color YELLOW Urine Appearance CLEAR Urine pH 6.0 Ur Specific [place] 1.006 Urine Protein NEGATIVE Urine Glucose (UA) NEGATIVE Urine Ketones NEGATIVE Urine Blood MODERATE H Urine Nitrite NEGATIVE Ur Leukocyte Esterase NEGATIVE Urine WBC (Auto) 0 Urine RBC (Auto) 0 06/17/19 05:20 WBC RBC Hgb Hct MCV MCH MCHC RDW Plt Count Sodium Potassium Chloride Carbon Dioxide Anion Gap BUN Creatinine Est GFR ( Amer) Glucose Calcium Triglycerides Cholesterol LDL Cholesterol Direct VLDL Cholesterol HDL Cholesterol Urine Color YELLOW Urine Appearance CLEAR Urine pH 6.0 Ur Specific [place] 1.008 Urine Protein NEGATIVE Urine Glucose (UA) NEGATIVE Urine Ketones NEGATIVE Urine Blood NEGATIVE Urine Nitrite NEGATIVE Ur Leukocyte Esterase NEGATIVE Urine WBC (Auto) 0 Urine RBC (Auto) 0 06/15/19 06/15/19 06/15/19 16:10 16:10 20:50 Creatine Kinase 36 L CK-MB (CK-2) 0.49 Troponin I < 0.012 < 0.012 Impressions: Chest/Abdomen CTA 06/15/19 17:37 IMPRESSION: Multiple emboli visualized in the right upper lobe and left lower lobe pulmonary arteries -segmental branches. 2 cm irregular cystic lesion in the superior segment of the left lower lobe. Scattered [id number] opacities bilaterally. Similar findings compared with the prior study which showed ruptured abdominal aortic aneurysm. Venous Doppler Study 06/15/19 17:37 IMPRESSION: Noncompressible right femoral and popliteal veins consistent with acute DVT. Assessment & Plan - Diagnosis (1) Multiple pulmonary emboli Is this a current diagnosis for this admission?: Yes (2) Right leg DVT Qualifiers: Affected thrombotic vein of extremity: femoral Chronicity: acute Qualified Code(s): I82.411 - Acute embolism and thrombosis of right femoral vein Is this a current diagnosis for this admission?: Yes (3) COPD (chronic obstructive pulmonary disease) Qualifiers: COPD type: unspecified COPD Qualified Code(s): J44.9 - Chronic obstructive pulmonary disease, unspecified Is this a current diagnosis for this admission?: Yes (4) S/P AAA repair Is this a current diagnosis for this admission?: Yes - Plan Summary Plan Summary: Assessment: 63 yo man s/p AAA repair 3 weeks ago, bilateral PE, acute right DVT, h/o COPD. Plan: 1. Respiratory: stable on room air. 2. Pulmonary: bilateral PE. Continue heparin drip. COPD, stable 3. CV: heart rate and BP acceptable. Echo pending 4. Heme: bilateral PE, acute right DVT. Will start xarelto today 5. Vascular: s/p AAA repair around 3 weeks ago at [facility]. No signs of bleeding on anticoagulation 6. Supportive care 7. Disposition: awaiting transfer out of ICU. Will d/c pt home later today after echo and if he is tolerates ambuation.
[2019-06-17] MEDS ORDERED: POLYETHYLENE GLYCOL 3350 POWDER 17 GM/1 PACKET PO ONE (10:30)
[2019-06-17] MEDS ORDERED: RIVAROXABAN 15 MG TABLET PO SCH (12:00)
[2019-06-17 12:20] VITALS: BP 106/52
[2019-06-17] MEDS: NICOTINE 21 MG/24 HR PATCH.TD24 TD PRN (12:32)
--- NOTE | 2019-06-17 15:15 | PDOC DISCHARGE SUMMARY ---
General - Admit/Disc Date/PCP Admission Date/Primary Care Provider: 06/15/19 23:41 CHARLES MCCABE MD Discharge Date: 06/17/19 - Discharge Diagnosis (1) Multiple pulmonary emboli Is this a current diagnosis for this admission?: Yes (2) Right leg DVT Is this a current diagnosis for this admission?: Yes (3) COPD (chronic obstructive pulmonary disease) Is this a current diagnosis for this admission?: Yes (4) S/P AAA repair Is this a current diagnosis for this admission?: Yes - Additional Information Resuscitation Status: Full Code Discharge Diet: As Tolerated Discharge Activity: Activity As Tolerated Prescriptions: Rivaroxaban [Xarelto 15 mg Tablet] 15 mg PO BIDBS #40 tablet Home Medications: Aspirin [Ecotrin 81 mg EC Tablet] 81 mg PO DAILY 06/16/19 Atorvastatin Calcium [Lipitor 40 mg Tablet] 40 mg PO QHS 06/16/19 Tiotropium [place] [Spiriva Respimat] 2 puff IH DAILY 06/16/19 Trazodone HCl [Desyrel 50 mg Tablet] 50 mg PO QHS 06/16/19 Atorvastatin Calcium [Lipitor 40 mg Tablet] 40 mg PO QHS tablet 06/17/19 Rivaroxaban [Xarelto 15 mg Tablet] 15 mg PO BIDBS #40 tablet 06/17/19 History of Present Illness History of Present Illness: RUTH RUGGIERO SR is a 63 year old male who is s/p AAA surgery about 3 weeks ago who presented to the ED on 06/15 c/o right calf swelling and shortness of breath. He was found to have bilateral PE and a right DVT. He was started on a heparin drip and admitted to the ICU. Hospital Course Hospital Course: Pt did well throughout his ICU stay. He remained on RA. His BP remained stable. He was able to ambulate without difficulty. Assessment: 63 yo man s/p AAA repair 3 weeks ago, bilateral PE, acute right DVT, h/o COPD. Plan: 1. Respiratory: stable on room air. 2. Pulmonary: bilateral PE. Heparin drip stopped, pt started on xarelto. COPD, stable 3. CV: heart rate and BP acceptable. Echo results pending at the time of discharge 4. Heme: bilateral PE, acute right DVT. Pt started on xarelto. 5. Vascular: s/p AAA repair around 3 weeks ago at [facility]. No signs of bleeding on anticoagulation 6. Disposition: will d/c pt home. Pt is to f/u with his PCP in the next 5-7 days. Physical Exam Vital Signs: Temp Pulse Resp BP Pulse Ox 98.2 F 97 24 H 106/52 L 99 06/17/19 12:00 06/17/19 12:00 06/17/19 14:00 06/17/19 12:00 06/17/19 14:00 Intake & Output 06/16/19 06/17/19 06/18/19 06:59 06:59 06:59 Intake Total 74 936 1184 Output Total 800 2970 1050 Balance -726 -4 134 Weight 96.1 kg 96.3 kg Physical Exam: please refer to today's progress note. Results Laboratory Results: 06/17/19 04:00 06/17/19 04:00 06/16/19 06/17/19 06/17/19 18:50 04:00 04:00 WBC 5.0 RBC 2.85 L Hgb 8.4 L Hct 25.4 L MCV 89 MCH 29.5 MCHC 33.1 RDW 15.8 H Plt Count 257 Sodium 136.6 L Potassium 3.6 Chloride 105 Carbon Dioxide 25 Anion Gap 7 BUN 9 Creatinine 0.74 Est GFR ( Amer) > 60 Glucose 102 Calcium 7.9 L Triglycerides 65 Cholesterol 102.93 LDL Cholesterol Direct 76 VLDL Cholesterol 13.0 HDL Cholesterol 21 L Urine Color YELLOW Urine Appearance CLEAR Urine pH 6.0 Ur Specific [place] 1.006 Urine Protein NEGATIVE Urine Glucose (UA) NEGATIVE Urine Ketones NEGATIVE Urine Blood MODERATE H Urine Nitrite NEGATIVE Ur Leukocyte Esterase NEGATIVE Urine WBC (Auto) 0 Urine RBC (Auto) 0 06/17/19 05:20 WBC RBC Hgb Hct MCV MCH MCHC RDW Plt Count Sodium Potassium Chloride Carbon Dioxide Anion Gap BUN Creatinine Est GFR ( Amer) Glucose Calcium Triglycerides Cholesterol LDL Cholesterol Direct VLDL Cholesterol HDL Cholesterol Urine Color YELLOW Urine Appearance CLEAR Urine pH 6.0 Ur Specific [place] 1.008 Urine Protein NEGATIVE Urine Glucose (UA) NEGATIVE Urine Ketones NEGATIVE Urine Blood NEGATIVE Urine Nitrite NEGATIVE Ur Leukocyte Esterase NEGATIVE Urine WBC (Auto) 0 Urine RBC (Auto) 0 06/15/19 06/15/19 06/15/19 16:10 16:10 20:50 Creatine Kinase 36 L CK-MB (CK-2) 0.49 Troponin I < 0.012 < 0.012 Impressions: Chest/Abdomen CTA 06/15/19 17:37 IMPRESSION: Multiple emboli visualized in the right upper lobe and left lower lobe pulmonary arteries -segmental branches. 2 cm irregular cystic lesion in the superior segment of the left lower lobe. Scattered [id number] opacities bilaterally. Similar findings compared with the prior study which showed ruptured abdominal aortic aneurysm. Venous Doppler Study 06/15/19 17:37 IMPRESSION: Noncompressible right femoral and popliteal veins consistent with acute DVT. Qualifiers PATIENT BEING DISCHARGED WITH ANY OF THE FOLLOWING DIAGNOSIS: No VTE patient discharged on overlapping Therapy?: Yes Acute Heart Failure - Is this a Heart Failure Patient?: No Plan Time Spent: Greater than 30 Minutes
--- NOTE | 2019-06-17 19:58 | XCELERA REPORT ---
[address] [address] Transthoracic Echocardiogram Report Name: BAHMAN RUTH MAYS Age: 63 yrs Gender: Male : 1955 Patient Status: Inpatient Patient Location: ICU^608^A Study Date: 06/17/2019 10:14 AM Height: 72 in Weight: 211 lb BSA: 2.2 m2 Procedure: A two-dimensional transthoracic echocardiogram with color flow and Doppler was performed. The study was technically difficult with many images being suboptimal in quality. Reason For Study: bilateratfrancois PE History: bilateratl PE. Ordering Physician: SHANNON HU Performed By: Greg Lawrence Interpretation Summary The left ventricle is normal in size. There is normal left ventricular wall thickness. LV EF is > than 75% LV contractility is somewhat hyperdynamic. The right ventricle is not well visualized secondary to technical limitations The right atrium is normal. The left atrial size is normal. Probably no ASD ,VSD , or PFO seen. There is no evidence of mitral valve prolapse. There is no vegetation seen on the mitral valve. There is no mitral valve stenosis. There is a trace amount of mitral regurgitation There is no aortic valvular vegetation. There is no aortic valve stenosis There is no LVOT obstruction. No aortic regurgitation is present. There is no tricuspid stenosis. There is a trace to mild amount of tricuspid regurgitation There is mild pulmonary hypertension by echo RVSP is 32 to 37 mm of Hg , with RA mean of 5 to 10. The pulmonic valve is not well visualized. There is a trace amount of pulmonic regurgitation The aortic root is normal size. The inferior vena cava appeared normal and decreased > 50% with respiration (RAP 5-10 mmHg) Canno exclude trace pericardial effusion behind the RA. There are no echocardiographic or Doppler indications for cardiac tamponade MMode/2D Measurements & Calculations RVDd: 4.0 cm LVIDd: 5.0 cm FS: 39.0 % Ao root diam: 3.4 cm IVSd: 0.79 cm LVIDs: 3.0 cm EDV(Teich): Ao root area: LVPWd: 0.83 cm 117.1 ml 8.9 cm2 ESV(Teich): 36.0 mlLA dimension: 3.7 cm EF(Teich): 69.2 % LVLd ap4: 8.8 cm SV(MOD-sp4): EDV(MOD-sp4): 56.0 ml 86.0 ml LVLs ap4: 7.3 cm ESV(MOD-sp4): 30.0 ml EF(MOD-sp4): 65.1 % Doppler Measurements & Calculations MV E max radha: MV P1/2t max radha: Ao V2 max: LV V1 max P.1 cm/sec 79.6 cm/sec 129.0 cm/sec 7.4 mmHg MV A max radha: MV P1/2t: 59.4 msec Ao max P.7 mmHgLV V1 max: 92.3 cm/sec MVA(P1/2t): 3.7 cm2 136.4 cm/sec MV E/A: 0.74 MV dec slope: 393.0 cm/sec2 MV dec time: 0.22 sec PA V2 max: TR max radha: MV P1/2t-pr_phl: 107.1 cm/sec 254.6 cm/sec 59.4 msec PA max P.6 mmHgTR max P.9 mmHg Left Ventricle The left ventricle is normal in size. There is normal left ventricular wall thickness. LV EF is > than 75%. LV contractility is somewhat hyperdynamic. Right Ventricle The right ventricle is not well visualized secondary to technical limitations. Atria The right atrium is normal. The left atrial size is normal. Probably no ASD ,VSD , or PFO seen. Mitral Valve There is no evidence of mitral valve prolapse. There is no vegetation seen on the mitral valve. There is no mitral valve stenosis. There is a trace amount of mitral regurgitation. Aortic Valve There is no aortic valvular vegetation. There is no aortic valve stenosis. There is no LVOT obstruction. No aortic regurgitation is present. Tricuspid Valve There is no tricuspid stenosis. There is a trace to mild amount of tricuspid regurgitation. There is mild pulmonary hypertension by echo. RVSP is 32 to 37 mm of Hg , with RA mean of 5 to 10. Pulmonic Valve The pulmonic valve is not well visualized. There is no pulmonic valvular stenosis. There is a trace amount of pulmonic regurgitation. Great Vessels The aortic root is normal size. The inferior vena cava appeared normal and decreased > 50% with respiration (RAP 5-10 mmHg). Effusions Canno exclude trace pericardial effusion behind the RA. There are no echocardiographic or Doppler indications for cardiac tamponade. : SHANNON HU, Shefali
[2019-06-17] MEDS ORDERED: ATORVASTATIN CALCIUM 40 MG TABLET PO SCH (22:00)
== END 2019-06-17 16:43 | disposition home or self-care (01) | DRG 299 ==
LOC: ER 16:22 → EH 23:41 → ICU 06-16 01:58
PROVIDERS: ADMIT Internal Medicine; ATTEND Internal Medicine
DX: I82.411 Acute embolism and thrombosis of right femoral vein (principal); I26.99 Other pulmonary embolism without acute cor pulmonale; I82.431 Acute embolism and thrombosis of right popliteal vein; J44.9 Chronic obstructive pulmonary disease, unspecified; E78.5 Hyperlipidemia, unspecified; I73.9 Peripheral vascular disease, unspecified; I10 Essential (primary) hypertension; M54.9 Dorsalgia, unspecified; Z87.891 Personal history of nicotine dependence; Z98.890 Other specified postprocedural states
CPT/HCPCS: 36415; 71275; 80048; 80053; 80061; 81001; 82550; 82553; 84484; 85025; 85027; 85610; 85730; 93005; 93010; 93306; 93971; 94640; 96372; 99285; J1644; J1650; J3490

== ENCOUNTER 2020-04-18 22:45 | Emergency (ER) | payer OTHER ==
--- NOTE | 2020-04-19 00:48 | RADIOLOGY REPORT (SQ) ---
EXAM DESCRIPTION: XR SHOULDER 2 OR MORE VIEWS COMPLETED DATE/TME: 04/19/2020 00:00 CLINICAL HISTORY: 64 years, Male, PAIN COMPARISON: None. NUMBER OF VIEWS: 3 TECHNIQUE: 3 view left shoulder LIMITATIONS: None. FINDINGS: Negative for acute fracture or dislocation. Mild degenerative changes of the acromioclavicular and glenohumeral joints. IMPRESSION: Mild degenerative change copyright 2010 [employer]- All Rights Reserved
--- NOTE | 2020-04-19 00:51 | RADIOLOGY REPORT (SQ) ---
EXAM DESCRIPTION: XR CHEST 1 VIEW COMPLETED DATE/TME: 04/18/2020 23:24 CLINICAL HISTORY: 64 years, Male, CHEST PAIN COMPARISON: May 26, 2019 NUMBER OF VIEWS: 1 TECHNIQUE: Single frontal view of the chest was obtained at 12:33 AM. LIMITATIONS: None. FINDINGS: The heart size is within normal limits. There is bibasilar subsegmental atelectasis. Mid and upper lung zones are clear. There is no evidence of pleural effusion or pneumothorax. IMPRESSION: Bibasilar subsegmental atelectasis. copyright 2010 [employer]- All Rights Reserved
[2020-04-19 01:42] LABS: ABSOLUTE EOSINOPHILS # (AUTO) 0.2 10^3/uL (0.0-0.6); ABSOLUTE LYMPHOCYTES (AUTO) 2.8 10^3/uL (0.5-4.7); ABSOLUTE MONOCYTES (AUTO) 0.9 10^3/uL (0.1-1.4); BASOPHILS % (AUTO) 0.3 % (0-2); EOSINOPHILS % (AUTO) 1.6 % (0-6); HEMATOCRIT 50.5 % (37.9-51.0); HEMOGLOBIN 17.4 g/dL (13.5-17.0); LYMPHOCYTES % (AUTO) 25.5 % (13-45); MEAN CORPUSCULAR HEMOGLOBIN 33.2 pg (27.0-33.4); MEAN CORPUSCULAR HGB CONC 34.4 g/dL (32.0-36.0); MEAN CORPUSCULAR VOLUME 97 fl (80-97); MONOCYTES % (AUTO) 8.4 % (3-13); RED BLOOD COUNT 5.23 10^6/uL (4.35-5.55); RED CELL DISTRIBUTION WIDTH 13.8 % (11.5-14.0); SEGMENTED NEUTROPHILS % (AUTO) 64.2 % (42-78); TOTAL CELLS COUNTED % (AUTO) 100 %; WHITE BLOOD COUNT 10.8 10^3/uL (4.0-10.5)
[2020-04-19 01:56] LABS: ALBUMIN 4.6 g/dL (3.5-5.0); ALKALINE PHOSPHATASE 72 U/L (38-126); ANION GAP 9 (5-19); ASPARTATE AMINO TRANSFERASE 21 U/L (17-59); BILIRUBIN,TOTAL 0.9 mg/dL (0.2-1.3); BLOOD UREA NITROGEN 17 mg/dL (7-20); CALCIUM 9.8 mg/dL (8.4-10.2); CARBON DIOXIDE 29 mmol/L (22-30); CHLORIDE 101 mmol/L (98-107); CREATINE KINASE 58 U/L (55-170); GLUCOSE 124 mg/dL (75-110); POTASSIUM 4.9 mmol/L (3.6-5.0); TOTAL PROTEIN 8.4 g/dL (6.3-8.2)
[2020-04-19 02:07] LABS: PLATELET COUNT 239 10^3/uL (150-450)
[2020-04-19 02:08] LABS: CREATINE KINASE MB 0.48 ng/mL (<4.55)
[2020-04-19 02:10] LABS: TROPONIN I < 0.012 ng/mL
--- NOTE | 2020-04-19 04:06 | ER Document Report ---
ED General - General Chief Complaint: Chest Pain Stated Complaint: CHEST PAIN,WEAKNESS Time Seen by Provider: 04/19/20 03:50 Notes: Patient is a 64-year-old male who comes emergency department for chief complaint of a sore throat. He states he has had a sore throat for about 5 days now, he states it hurts every time he swallows, he states that it has not resolved and he became concerned. He states he has also had pain in his left shoulder with movement for over a month now, he states he is going to follow-up with orthopedics in regards to this. He denies chest pain otherwise. He reports mild intermittent cough but states this is his baseline, he states he stopped smoking over the past year and smoked for a long time. He denies fever, maximum temperature was 99.5 at home per patient, he states he was also seen 7 days ago by his primary care and had a negative COVID test. Patient denies any current complaints except for sore throat and pain in the left shoulder when he moves. Past medical history is fairly extensive including VT with stents, PE on Xarelto, former smoker, CVA with no reported deficits, and history of AAA repair in the lower abdomen. TRAVEL OUTSIDE OF THE [place] IN LAST 30 DAYS: No - Related Data Allergies/Adverse Reactions: No Known Allergies Allergy (Verified 02/23/16 07:38) Past Medical History - General Information source: Patient - Social History Smoking Status: Former Smoker Frequency of alcohol use: None Drug Abuse: None Lives with: Family Family History: Reviewed & Not Pertinent - Past Medical History Cardiac Medical History: Reports: Hx Hypercholesterolemia, Hx Hypertension, Hx Peripheral Vascular Disease Denies: Hx Coronary Artery Disease, Hx Heart Attack Pulmonary Medical History: Reports: Hx COPD, Hx Pneumonia - Complicating his recent abdominal aortic aneurysm Denies: Hx Asthma, Hx Bronchitis Neurological Medical History: Denies: Hx Cerebrovascular Accident, Hx Seizures Endocrine Medical History: Denies: Hx Diabetes Mellitus Type 1, Hx Diabetes Mellitus Type 2, Hx Hyperthyroidism, Hx Hypothyroidism GI Medical History: Denies: Hx Cirrhosis, Hx Crohn's Disease, Hx Hepatitis, Hx Ulcerative Colitis Musculoskeletal Medical History: Denies Hx Arthritis, Denies Hx Gout Skin Medical History: Denies Hx Eczema, Denies Hx Psoriasis Infectious Medical History: Denies: Hx Hepatitis Past Surgical History: Reports: Hx Orthopedic Surgery, Hx Testicular Surgery - vasectomy, Hx Vascular Surgery - Abdominal aortic aneurysm repair. Denies: Hx Pacemaker - Immunizations Immunizations up to date: Yes Hx Diphtheria, Pertussis, Tetanus Vaccination: Yes Review of Systems - Review of Systems Constitutional: See HPI EENT: See HPI Cardiovascular: No symptoms reported Respiratory: No symptoms reported Gastrointestinal: No symptoms reported Genitourinary: No symptoms reported Male Genitourinary: No symptoms reported Musculoskeletal: See HPI Skin: No symptoms reported Hematologic/Lymphatic: No symptoms reported Neurological/Psychological: No symptoms reported Physical Exam - Vital signs Vitals: Temp Pulse Resp BP Pulse Ox 98.8 F 102 H 20 132/86 H 94 04/18/20 23:09 04/18/20 23:09 04/18/20 23:09 04/18/20 23:09 04/18/20 23:09 - Notes Notes: GENERAL: Alert, interacts well. No acute distress. HEAD: Normocephalic, atraumatic. EYES: Pupils equal, round, and reactive to light. Extraocular movements intact. ENT: Oral mucosa moist, tongue midline. Erythema the posterior pharynx with tonsillitis but no exudates, no evidence of peritonsillar abscess, uvula unr emarkable. Airway patent. Nares patent, sinuses non-tender, ear canals unremarkable, TM's intact. NECK: Full range of motion. Supple. Trachea midline. Bilateral moderate anterior cervical adenopathy. LUNGS: Clear to auscultation bilaterally, no wheezes, rales, or rhonchi. No respiratory distress. Non-tender chest wall. HEART: Regular rate and rhythm. No murmur ABDOMEN: Soft, non-tender. Non-distended. Bowel sounds present in all 4 quadrants. No organomegaly noted. EXTREMITIES: Tenderness to the left shoulder on palpation and patient has pain with range of motion of the shoulder although range of motion is intact. no edema, normal radial and dorsalis pedis pulses bilaterally. No cyanosis. BACK: no cervical, thoracic, lumbar midline tenderness. No saddle anesthesia, normal distal neurovascular exam. Moves all extremities in full range of motion. NEUROLOGICAL: Alert and oriented x3. Normal speech. Cranial nerves II through XII grossly intact. Strength 5/5 in all extremities. PSYCH: Normal affect, normal mood. SKIN: Warm, dry, normal turgor. No rashes or lesions noted. Course - Re-evaluation Re-evalutation: Patient is very pleasant, jovial, cracking jokes. He does have a erythema of the posterior pharynx with some tonsillitis, he does have anterior cervical adenopathy, he does have pain in his left shoulder with movement and on palpation, however his examination is completely unremarkable otherwise. Vital signs unremarkable. CBC nonspecific, chemistry unremarkable, troponin negative. Strep is negative. Chest x-ray unremarkable, EKG unremarkable. Patient is afebrile. I discussed with patient. I feel his pharyngitis is most likely viral, after discussing options patient will be treated with Decadron for his lymphadenopathy and pharyngitis, he will be tested again for COVID-19 because of his multiple risk factors and sick symptoms which I suspect are viral. I did offer to repeat troponin but patient declined, I feel this is appropriate because symptoms have been going on for over a month and are very musculoskeletal in nature. Discussed his shoulder x-ray which shows arthritis. Patient has follow-up for this already. Discussed return precautions at length, patient states understanding and agreement, stable and well-appearing at time of discharge. - Vital Signs Vital signs: Temp Pulse Resp BP Pulse Ox 98.8 F 89 15 141/90 H 95 04/19/20 05:50 04/19/20 05:50 04/19/20 05:50 04/19/20 05:50 04/19/20 05:50 - Laboratory Result Diagrams: 04/19/20 01:25 04/19/20 01:25 Laboratory results interpreted by me: 04/19/20 04/19/20 01:25 01:25 WBC 10.8 H Hgb 17.4 H Creatinine 1.28 H Est GFR (MDRD) Non-Af 57 L Glucose 124 H Total Protein 8.4 H - EKG Interpretation by Me Additional EKG results interpreted by me: EKG shows borderline sinus tachycardia at a rate of 101, QTc of 415, normal axis, no T wave inversions or ST segment changes in consecutive leads Discharge - Discharge Clinical Impression: Anterior cervical adenopathy Pharyngitis Qualifiers: Pharyngitis/tonsillitis etiology: unspecified etiology Qualified Code(s): J02.9 - Acute pharyngitis, unspecified Left shoulder pain Qualifiers: Chronicity: acute Qualified Code(s): M25.512 - Pain in left shoulder Condition: Stable Disposition: HOME, SELF-CARE Additional Instructions: Overall based on your work-up and examination I suspect you have a viral illness causing your symptoms. You have been treated with dexamethasone to help with your soreness of the throat, drink plenty of fluids, rest, symptoms should simply resolve with time. You have been retested for COVID-19, please quarantine following discharge until you have been contacted with your results. Follow-up with primary care. Come back if you worsen including difficulty swallowing or breathing, chest pain, spiking fevers, vomiting, or any other concerning or worsening symptoms. As a person under investigation for COVID-19, the [place] Department of Health and Human Services (division on public health) advises you to adhere to the following guidance until your test results are reported to you. If your test result is positive, you will receive additional information from your provider and your local health department at that time. Remain at home until you are cleared by the health provider or public health authorities. Keep a log of visitors to your home, notify any visitors to your home of your isolation status. If you plan to move to a new address or leave the county, notify the local health department in your County. Call your Doctor or seek care if you have an urgent medical need. Before seeking medical care, call him to get instructions from the provider before arriving at the medical office, clinic, or hospital. Notify them that you are being tested for the virus (COVID-19) so that arrangements can be made, as necessary, to prevent transmission to others in the healthcare setting. Next, notify the local health department in your county. If a medical emergency arises and you need to call 911, inform the first responders that you are being tested for the virus that causes COVID-19. Next, notify the local health department in your county.
[2020-04-19] MEDS ORDERED: DEXAMETHASONE SOD PHOS INJ 10 MG/1 ML VIAL IM ONE (05:08)
[2020-04-19 05:51] VITALS: BP 141/90
--- NOTE | 2020-04-19 19:20 | EKG REPORT ---
SEVERITY:- OTHERWISE NORMAL ECG - SINUS TACHYCARDIA : Confirmed by: Leena Holguin 19-Apr-2020 19:19:30
== END 2020-04-19 05:51 | disposition home or self-care (01) ==
LOC: ER 22:45
DX: J03.90 Acute tonsillitis, unspecified (principal); R59.0 Localized enlarged lymph nodes; M25.512 Pain in left shoulder; J44.9 Chronic obstructive pulmonary disease, unspecified; J98.11 Atelectasis; R05 Cough; R00.0 Tachycardia, unspecified; I25.2 Old myocardial infarction; I10 Essential (primary) hypertension; I26.99 Other pulmonary embolism without acute cor pulmonale; Z95.5 Presence of coronary angioplasty implant and graft; Z87.891 Personal history of nicotine dependence; Z20.828 Contact with and (suspected) exposure to other viral communicable diseases
CPT/HCPCS: 93005; 99285; 96372; 36415; 87070; 82553; 87880; 82550; 85025; 87635; 80053; 84484; 71045; 73030; 93010; J1100; C9803

== ENCOUNTER → 2020-05-18 | Outpatient (CLI) | payer OTHER ==
[~2020-05-18] MED LIST: REGADENOSON INJ 0.4 MG/5 ML DISP.SYRIN IV ONE
--- NOTE | 2020-05-18 13:23 | DRAGON STRESS TEST REPORT ---
Pharmacological nuclear stress test Date: 05/18/2020 Referring physician: Henok Hernandez PA-C Performing physician: Hu Solano MD Indication: Dyspnea, ruptured aortic aneurysm. Clinical history 64-year-old male with history of ruptured abdominal aortic aneurysm status post repair in May 2019. He has COPD and is a former smoker. He is on systemic anticoagulation with rivaroxaban for deep vein thrombosis. He continues to have severe dyspnea which is getting worse. Given history of peripheral vascular disease we decided to proceed with myocardial perfusion imaging study to evaluate myocardial ischemia as cause of dyspnea which could be of target for angina. Procedure The patient presented to the stress lab. Initially rest images were obtained according to standard protocol after the injection of of 14.71 millicurie technetium 99m sestamibi. Subsequently the patient underwent pharmacological stress utilizing 0.4 mg of regadenoson intravenously. The patient's EKG and vital signs were monitored throughout the procedure. Subsequently patient was injected with with 43.7 millicuries of technetium 99m sestamibi. After a period of rest, stress images were obtained according to standard protocol. EKG showed sinus rhythm at 78 beats per minute. The patient's stress EKG did not show any evidence for myocardial ischemia. There were no arrhythmias observed. Raw as well as processed rest and stress images were reviewed. There was some movement artifact which has caused mild image degradation. There was mild to moderate gut uptake which did not interfere with the study. The rest and stress images show uniform uptake of radioactive isotope without any fixed or reversible defects to suggest myocardial ischemia or myocardial infarction. There is normal contractility post-rest. The calculated ejection fraction is 68%. The TID ratio is 1.15. Conclusion The stress EKG is negative for myocardial ischemia There is no scintigraphic evidence of myocardial infarction or ischemia provoked by pharmacological stress. There is normal contractility post-stress. The gated left ventricular ejection fraction is 68%. The patient will be given an appointment to discuss these results. [facility]
--- NOTE | 2020-05-19 10:27 | XCELERA REPORT ---
[address] [address] Transthoracic Echocardiogram Report Name: BAHMANRUTH KENNEY SR Age: 64 yrs Gender: Male : 1955 Patient Status: Outpatient Patient Location: [facility] Study Date: 05/18/2020 10:36 AM History: Abdominal aortic aneurysm rupture Dyspnea COPD Height: 72 in Weight: 238 lb BSA: 2.3 m2 Procedure: A complete two-dimensional transthoracic echocardiogram was performed (2D, M-mode, spectral and color flow Doppler). The study was technically difficult with many images being suboptimal in quality. Reason For Study: SOB Previous Evaluation: A previous study was performed on 06/17/2019 LVEF >75%. History: Shortness of breath. Vascular surgeries/interventions: Abdominal aortic aneurysm rupture. Dyspnea COPD PE. Ordering Physician: ALEXI RODRIGUEZ Performed By: Greg Lawrence Interpretation Summary The left ventricle is hyperdynamic. The Ejection Fraction estimate is >70% The right ventricle is normal in size and function. There is a trace amount of mitral regurgitation There is no aortic valve stenosis There is a trace amount of tricuspid regurgitation There is no pericardial effusion. MMode/2D Measurements & Calculations RVDd: 3.7 cm LVIDd: 5.0 cm FS: 37.2 % Ao root diam: 3.4 cm IVSd: 0.98 cm LVIDs: 3.2 cm EDV(Teich): 120.4 ml Ao root area: 9.1 cm2 LVPWd: 0.99 cm ESV(Teich): 39.9 ml LA dimension: 4.0 cm EF(Teich): 66.8 % Doppler Measurements & Calculations MV E max radha: MV P1/2t max radha: Ao V2 max: LV V1 max P.7 cm/sec 87.3 cm/sec 103.8 cm/sec 4.0 mmHg MV A max radha: MV P1/2t: 75.0 msec Ao max PG: LV V1 max: 89.6 cm/sec MVA(P1/2t): 2.9 cm2 4.3 mmHg 99.6 cm/sec MV E/A: 0.89 MV dec slope: 341.0 cm/sec2 MV dec time: 0.20 sec PA V2 max: MV P1/2t-pr_phl: 98.2 cm/sec 75.0 msec PA max P.9 mmHg Left Ventricle The left ventricle is grossly normal size. The left ventricle is hyperdynamic. The Ejection Fraction estimate is >70%. Doppler measurements suggest impaired left ventricular relaxation, which is associated with grade I/IV or mild diastolic dysfunction. Regional wall motion abnormalities cannot be excluded due to limited visualization. Right Ventricle The right ventricle is normal in size and function. Atria The right atrium is normal. The left atrium is borderline dilated. The interatrial septum is intact with no evidence for an atrial septal defect. There is no Doppler evidence for an interatrial shunt. Mitral Valve The mitral valve is grossly normal. There is no evidence of mitral valve prolapse. There is no mitral valve stenosis. There is a trace amount of mitral regurgitation. Aortic Valve The aortic valve is not well visualized secondary to technical limitations. The aortic valve opens well. There is no aortic valve stenosis. No aortic regurgitation is present. Tricuspid Valve The tricuspid valve is not well visualized, but is grossly normal. There is a trace amount of tricuspid regurgitation. Tricuspid regurgitation jet envelope not well defined to measure RV systolic pressure accurately. Pulmonic Valve The pulmonic valve is not well visualized. There is no pulmonic valvular stenosis. There is no pulmonic valvular regurgitation. Effusions There is no pericardial effusion. : ALEXI RODRIGUEZ Anil
== END ==
LOC: RAD 07:47
PROVIDERS: ATTEND Internal Medicine
DX: R06.02 Shortness of breath (principal); I82.419 Acute embolism and thrombosis of unspecified femoral vein; I71.3 Abdominal aortic aneurysm, ruptured
CPT/HCPCS: 93306; 93017; 78452; A9500; J2785; Q9969

== ENCOUNTER → 2020-06-18 | Outpatient (CLI) | payer OTHER ==
--- NOTE | 2020-06-18 09:47 | RADIOLOGY REPORT (SQ) ---
EXAM DESCRIPTION: CT CHEST WITH IMAGES COMPLETED DATE/TIME: 06/18/2020 8:12 am REASON FOR STUDY: J98.4 OTHER DISORDERS OF LUNG J98.4 OTHER DISORDERS OF LUNG COMPARISON: 06/15/2019 TECHNIQUE: CT scan of the chest performed using helical scanning technique with dynamic intravenous contrast injection. Images reviewed with lung, soft tissue and bone windows. Reconstructed coronal and sagittal MPR and MIP images reviewed. All images stored on PACS. All CT scanners at this facility use dose modulation, iterative reconstruction, and/or weight based d osing when appropriate to reduce radiation dose to as low as reasonably achievable (ALARA). [facility]: Dose Right [facility]: CareDose [facility]: Dose Right [facility]: Teradose 4D [facility]: Botanica Exotica CONTRAST TYPE AND DOSE: contrast/concentration: Isovue 350.00 mmol/ml; Total Contrast Delivered: 80. 0 ml; Total Saline Delivered: 51.0 ml RENAL FUNCTION: Creatinine 1.2 RADIATION DOSE: CT Rad equipment meets quality standard of care and radiation dose reduction techniq ues were employed. CTDIvol: 17.3 mGy. DLP: 750 mGy-cm. . LIMITATIONS: None. FINDINGS: LUNGS AND PLEURA: Stable mild -moderate centrilobular emphysema. Scarring in the lingula and left lower lobe. Right upper lobe small calcified granuloma. No developing nodules or infiltrat e. HILAR AND MEDIASTINAL STRUCTURES: No identified masses or abnormal nodes. HEART AND VASCULAR STRUCTURES: No aneurysm or dissection. No central pulmonary emboli. No pericardi al effusion. HARDWARE: None in the chest. UPPER ABDOMEN: No significant findings. Limited exam. THYROID AND OTHER SOFT TISSUES: No masses. No adenopathy. BONES: No significant finding. OTHER: No other significant finding. IMPRESSION: Stable chest. Emphysema and mild scarring. No fibrosis. TECHNICAL DOCUMENTATION: JOB ID: [id number] Quality ID # [id number]: Final reports with documentation of one or more dose reduction techniques (e.g., Au tomated exposure control, adjustment of the mA and/or kV according to patient size, use of iterative reconstruction technique) 2010 [employer]- All Rights Reserved Reading location - IP/workstation name: [email or web address]
== END ==
LOC: RAD 07:43
PROVIDERS: ATTEND Physician Assistant
DX: J98.4 Other disorders of lung (principal); J43.9 Emphysema, unspecified
CPT/HCPCS: 71260; 82565

== ENCOUNTER → 2020-09-14 | Outpatient (CLI) | payer MEDICARE, OTHER ==
--- NOTE | 2020-09-14 15:29 | RADIOLOGY REPORT (SQ) ---
EXAM DESCRIPTION: MRI LT UPPER JOINT WITHOUT IMAGES COMPLETED DATE/TIME: 09/14/2020 8:48 am REASON FOR STUDY: (M25.512)PAIN IN LEFT SHOULDER M25.512 PAIN IN LEFT SHOULDER. Anterior left shou lder pain and decreased range of motion. Unable to raise overhead or behind back. Pain and weakness for 6 months. No known injury. COMPARISON: Left shoulder radiograph, 06/02/2020 TECHNIQUE: Left shoulder images acquired and stored on PACS. Multiplanar imaging to include fat sens itive sequences such as T1, water sensitive sequences such as FST2/STIR, cartilage sensitive sequence s such as FSPD/gradient-echo sequences. LIMITATIONS: None. FINDINGS: BONE MARROW AND CORTEX: No worrisome bone lesions or marrow replacement. No occult fractur es. JOINT OR BURSAL EFFUSION: No significant joint or bursal fluid. No suggestion of loose bodies. GLENO-HUMERAL ARTICULATION: Normal articulation. No subluxation. No cystic change. No osteophytes or cartilage loss. ACROMION AND AC JOINT: Mild osteoarthritis at the acromioclavicular joint. No down-sloping or distal spur. Sub-acromial space maintained. ROTATOR CUFF AND INTERVAL: No significant tear or signal alteration. No cuff muscle atrophy. No rotator interval tear. No rotator interval thickening to suggest adhesive capsulitis. LABRUM AND BICEPS LABRAL COMPLEX: Intact. No labral tear. Intra-articular long-head biceps tendon n ormal. Distal biceps in normal location in bicipital groove. REMAINDER OF LABRUM AND IGHL : No gross tear or paralabral cyst formation. Labral evaluation is less than optimal without joint distention. No thickening of IGHL to suggest adhesive capsulitis. PERIARTICULAR AND ADJACENT SOFT TISSUES: No masses or abnormal nodes. OTHER: No other significant finding. IMPRESSION: No rotator cuff tear. Mild osteoarthritis at the acromioclavicular joint. TECHNICAL DOCUMENTATION: JOB ID: [id number] 2010 [employer]- All Rights Reserved Reading location - IP/workstation name: [email or web address]
== END ==
LOC: RAD 09:10
PROVIDERS: ATTEND Orthopaedic Surgery
DX: M19.012 Primary osteoarthritis, left shoulder (principal); M25.512 Pain in left shoulder